=== PATIENT | female | born 1995 | race Caucasian/White ===

== ENCOUNTER 2022-07-18 05:55 | Day surgery (SDC) | payer BC ==
[2022-07-12 12:09] LABS: CLARITY,URINE CLOUDY (Clear); COLOR,URINE YELLOW (Yellow); GLUCOSE, URINE NEGATIVE (Neg); KETONES,URINE NEGATIVE (Neg); LEUKOCYTE ESTERASE ,URINE NEGATIVE (Neg); NITRITES, URINE NEGATIVE (Neg); OCCULT BLOOD,URINE NEGATIVE (Neg); PH,URINE 7.5 (4.8-8.0); PROTEIN,URINE NEGATIVE (Neg); UROBILINOGEN,URINE 0.2 E.U/dL (0.2-1.0)
[2022-07-12 12:09] LABS: BASOPHILS % (AUTO) 0.6 % (0-1); EOSINOPHILS % (AUTO) 0.5 % (0-6); LYMPHOCYTES # (AUTO) 2.4 X10'3 (1.1-4.8); LYMPHOCYTES % (AUTO) 39.6 % (21-51); MEAN CORPUSCULAR HGB CONC 34.8 g/dL (33.0-36.5); MEAN CORPUSCULAR VOLUME 86.4 FL (78-98); MEAN PLATELET VOLUME 8.3 FL (7.4-10.4); MONOCYTES # (AUTO) 0.3 X10'3 (0-0.9); MONOCYTES % (AUTO) 5.6 % (2-12); NEUTROPHILS # (AUTO) 3.2 X10'3 (1.8-7.7); NEUTROPHILS % (AUTO) 53.7 % (42-75); PRE OP HEMATOCRIT 37.8 % (35.0-45.0); PRE OP HEMOGLOBIN 13.1 g/dL (12.0-16.0); PRE OP PLATELET COUNT 210 X10'3 (140-440); RED BLOOD COUNT 4.37 X10'6 (4.20-5.60); RED CELL DISTRIBUTION WIDTH 13.2 % (11.5-14.5)
[2022-07-12 12:10] LABS: UA COLLECTION TYPE CLN CATCH MIDSTREAM
[2022-07-12 12:18] LABS: MUCUS STRANDS NONE SEEN /LPF (Neg); RBC,URINE 0-2 /HPF (0-2); SQUAMOUS EPITHELIAL CELL,UR FEW /LPF (FEW); WBC,URINE 0-4 /HPF (0-4)
[2022-07-12 12:21] LABS: AMORPHOUS PHOSPHATES 3+; BACTERIA,URINE FEW /HPF (Neg)
[2022-07-12 12:28] LABS: HCG SERUM QL NEGATIVE
[2022-07-12 12:49] LABS: ALBUMIN 4.3 G/DL (3.4-5.0); ALBUMIN/GLOBULIN RATIO 1.3 (1.1-1.5); ALKALINE PHOSPHATASE 64 IU/L (46-116); BLOOD UREA NITROGEN 10 MG/DL (7-18); CALCIUM 9.5 MG/DL (8.5-10.1); CHLORIDE 103 MMOL/L (99-107); CREATININE 0.91 MG/DL (0.40-0.90); PRE OP ALT 27 U/L (30-65); PRE OP ANION GAP 8 (8-16); PRE OP AST 23 U/L (10-37); PRE OP BILIRUB, TOTAL 0.7 MG/DL (0.0-1.0); PRE OP GLUCOSE 92 MG/DL (70-104); PRE OP POTASSIUM 3.4 MMOL/L (3.4-5.1); PRE OP SODIUM 138 MMOL/L (135-145); TOTAL CARBON DIOXIDE 27.2 MMOL/L (24-32); TOTAL PROTEIN 7.7 G/DL (6.4-8.2); eGFR 75 ML/MIN
[~2022-07-18] VITALS: Ht 160 cm; Wt 57.3 kg
[2022-07-18] VITALS (9 sets, daily range): BP systolic 92–107; BP diastolic 55–62
[~2022-07-18 05:55] MED LIST: ceFAZolin inj. 2,000 MG in dextrose 5%-water 100 ML IV ONE; famotidine 20mg tablet PO ONE; ringers solution, lacted 1,000 ML IV SCH
[2022-07-18] MEDS ORDERED: bacitracin 15gm ointment TP ONE (06:47)
[2022-07-18] MEDS ORDERED: BUPIVAcaine 0.5% inj/PF 30 ML ONE (06:47)
[2022-07-18] MEDS ORDERED: sevoflurane 250ml liquid IH ONE (08:37)
[2022-07-18] MEDS ORDERED: ringers solution, lacted 1,000 ML IV SCH (08:40)
[2022-07-18] MEDS ORDERED: morphine 2 MG/ML inj. syringe IV PRN (08:40)
[2022-07-18] MEDS ORDERED: morphine 4 MG/ML inj SYRINge IV PRN (08:40)
[2022-07-18] MEDS ORDERED: ondansetron/PF 4mg/2ml inj IV PRN (08:40)
[2022-07-18] MEDS ORDERED: fentaNYL/PF 50MCG/1 ML 2ML syringe IV PRN ×2 (08:40)
[2022-07-18] MEDS ORDERED: hydrALAZINE 20mg/ml inj. IV PRN (08:40)
[2022-07-18] MEDS ORDERED: labetalol 20mg/4ml (5mg/ml) syringe IV PRN (08:40)
[2022-07-18] MEDS ORDERED: fentaNYL/PF 50MCG/1 ML 2ML syringe ONE (08:45)
[2022-07-18] MEDS ORDERED: midazolam 1 mg/ML 2ml injection ONE (08:46)
[2022-07-18] MEDS ORDERED: ROPIVAcaine 0.5% (5mg/ml) 30ml vial ONE (08:53)
[2022-07-18] MEDS ORDERED: propofol inj 20 ML IV ONE (08:53)
[2022-07-18] MEDS ORDERED: LIDOcaine 1%/PF 5ML 10 MG/ML VIAL ONE (08:53)
[2022-07-18] MEDS ORDERED: ondansetron/PF 4mg/2ml inj ONE (08:55)
[2022-07-18] MEDS ORDERED: dexamethasone sod phosphate 4mg/ml inj. ONE (08:55)
--- NOTE | 2022-07-18 09:24 | NUR ---
Received from OR via [facility], accompanied by Anesthesiologist and report given by GAYATRI Anesthesiologist. PATIENT WAKING UP, DENIES PAIN, V/S WNL, 20G TO RIGHT AC, drsg to LEFT FOOT C/D/I with ICE PACK. Addendum: 07/18/22 at 0959 by Tonio Hale RN Amended: Links added. Addendum: 07/18/22 at 1050 by Tonio Hale RN Received from OR via [place], accompanied by Anesthesiologist and report given by GAYATRI Anesthesiologist. PATIENT WAKING UP, DENIES PAIN, V/S WNL, 20G TO RIGHT AC, drsg to LEFT FOOT C/D/I with ICE PACK AND SURGERY BOOT.
--- NOTE | 2022-07-18 10:24 | NUR ---
ALL DISCHARGE CRITERIA HAS BEEN MET. VSS, PAIN AT A TOLERABLE LEVEL, ABLE TO SAFELY AMBULATE AND TRANSFER SELF. IV TAKEN OUT WITHOUT ANY COMPLICATIONS. ALL DISCHARGE INSTRUCTIONS COVERED WITH PATIENT AND ALL QUESTIONS ANSWERED. PATIENT TAKEN OUT VIA WHEELCHAIR WITH ALL BELONGINGS TO PERSONAL VEHICLE WHERE FAMILY DROVE PATIENT HOME. Addendum: 07/18/22 at 1050 by Tonio Hale RN Amended: Links added.
== END 2022-07-18 10:24 | disposition home or self-care (01) ==
LOC: PAS 05:55
PROVIDERS: ATTEND Podiatrist Foot & Ankle Surgery
DX: T84.84XA Pain due to internal orthopedic prosthetic devices, implants and grafts, initial encounter (principal); M19.072 Primary osteoarthritis, left ankle and foot; G89.18 Other acute postprocedural pain; Z98.890 Other specified postprocedural states; Z72.89 Other problems related to lifestyle; Z79.899 Other long term (current) drug therapy; Y83.8 Other surgical procedures as the cause of abnormal reaction of the patient, or of later complication, without mention of misadventure at the time of the procedure; Y92.89 Other specified places as the place of occurrence of the external cause
CPT/HCPCS: 20680; 36415; 64447; 64450; 73620; 80053; 81001; 82948; 84703; 85025; A6223; J0690; J1100; J2250; J2405; J2704; J2795; J3010; J3490; J7030; J7060; J7120; S0020; Z7506; Z7512; A4215; A4618; A6449; A7000